=== PATIENT | female | born 1980 | race American Indian/Alaskan Native ===

== ENCOUNTER 2016-09-08 23:53 | Emergency (ER) | payer MEDICAID ==
[2016-09-09 04:24] VITALS: BP 109/77
--- NOTE | 2016-09-09 05:54 | Emergency Department Report ---
ED Shortness of Breath HPI - General Chief Complaint: Dyspnea/Respdistress Stated Complaint: COUGH Time Seen by Provider: 09/09/16 05:48 Source: patient Mode of arrival: Ambulatory Limitations: No Limitations - History of Present Illness Initial Comments: 36-year-old female reports that she is 3 weeks comes in for complaint of cough for 1 week. She reports that yesterday she started having shortness of breathing. She reports she is breathing comfortably now.LMP . Denies any fever or chills or nausea no vomiting or lower leg edema.. MD Complaint: shortness of breath, cough - Related Data Previous Rx's Medication Instructions Recorded Last Taken Type Acetaminophen/Codeine [Tylenol #3] 1 tab PO Q4HR PRN #20 tablet 09/09/16 Unknown Rx Allergies Allergy/AdvReac Type Severity Reaction Status Date / Time No Known Allergies Allergy Verified 09/09/16 00:34 ED Review of Systems ROS: Stated complaint: COUGH Other details as noted in HPI Constitutional: denies: chills, fever ENT: throat pain. denies: ear pain Respiratory: cough, shortness of breath Gastrointestinal: diarrhea. denies: abdominal pain, nausea, vomiting ED Past Medical Hx - Past Medical History Previous Medical History?: No - Surgical History Past Surgical History?: No - Social History Smoking Status: Never Smoker Substance Use Type: None - Medications Home Medications: Home Medications Medication Instructions Recorded Confirmed Last Taken Type Acetaminophen/Codeine [Tylenol #3] 1 tab PO Q4HR PRN #20 tablet 09/09/16 Unknown Rx ED Physical Exam - General Limitations: No Limitations General appearance: alert, in no apparent distress - Head Head exam: Present: atraumatic, normocephalic - ENT ENT exam: Present: mucous membranes moist - Neck Neck exam: Present: normal inspection, full ROM. Absent: tenderness, lymphadenopathy - Respiratory Respiratory exam: Present: normal lung sounds bilaterally. Absent: respiratory distress, wheezes, rales, rhonchi - Cardiovascular Cardiovascular Exam: Present: regular rate, normal rhythm, normal heart sounds - GI/Abdominal GI/Abdominal exam: Present: soft. Absent: distended, tenderness ED Course Vital Signs 09/09/16 09/09/16 00:34 04:23 Temperature 98.4 F 98.3 F Pulse Rate 88 90 Respiratory 16 Rate Blood Pressure 123/77 Blood Pressure 109/77 [Left] O2 Sat by Pulse 98 96 Oximetry ED Medical Decision Making - Medical Decision Making Been evaluated by this provider in fast track. We will discharge patient on Tylenol No. 3 for cough suppressant as well as pain. Discussed with patient that since she is and only about 3 weeks that she still can only take Tylenol for pain and discomfort. Patient verbalized understanding. Did discuss this with Dr. Reyna. Critical care attestation.: If time is entered above; I have spent that time in minutes in the direct care of this critically ill patient, excluding procedure time. ED Disposition Clinical Impression: Cough Disposition: DISCHARGED TO HOME OR SELFCARE Is pt being admited?: No Does the pt Need Aspirin: No Condition: Stable Instructions: Cold Symptoms (ED) Additional Instructions: Follow-up with her primary care provider 3-5 days. For further evaluation. If he develops a fever worsening shortness of breath worsening cough please follow- up with emergency room as soon as possible. Prescriptions: Acetaminophen/Codeine [Tylenol #3] 1 tab PO Q4HR PRN #20 tablet PRN Reason: Pain Forms: Work/School Release Form(ED)
== END 2016-09-09 06:10 | disposition home or self-care (01) ==
LOC: ED 23:53
DX: O26.891 Other specified pregnancy related conditions, first trimester (principal); R05 Cough; Z3A.01 Less than 8 weeks gestation of pregnancy
CPT/HCPCS: 81025; 99283

== ENCOUNTER 2016-09-27 20:28 | Emergency (ER) | payer MEDICAID ==
[2016-09-28] MEDS ORDERED: TYLENOL #3 PO ONE (01:46)
--- NOTE | 2016-09-28 03:27 | Emergency Department Report ---
- General Chief Complaint: Upper Respiratory Infection Stated Complaint: VOMITING BLOOD/R FLANK PAIN Source: patient Mode of arrival: Ambulatory Limitations: No Limitations - History of Present Illness Initial Comments: 36-year-old female that 8 weeks comes in for complaint of vomiting and coughing 3 weeks she denies any fever she does admit to sinus drainage complains of right upper lateral pain worse with cough. She has started OB but they did not place her on any antiemetics - Related Data Previous Rx's Medication Instructions Recorded Last Taken Type Acetaminophen/Codeine [Tylenol #3] 1 tab PO Q4HR PRN #20 tablet 09/09/16 Unknown Rx Acetaminophen/Codeine [Tylenol #3] 1 tab PO Q6H PRN #20 tab 09/28/16 Unknown Rx Ondansetron [Zofran Odt] 4 mg PO Q8H PRN #30 tab.rapdis 09/28/16 Unknown Rx Allergies Allergy/AdvReac Type Severity Reaction Status Date / Time No Known Allergies Allergy Verified 09/09/16 00:34 ED Review of Systems ROS: Stated complaint: VOMITING BLOOD/R FLANK PAIN Other details as noted in HPI Constitutional: denies: chills, fever ENT: congestion. denies: ear pain, throat pain Respiratory: cough Gastrointestinal: nausea ED Past Medical Hx - Past Medical History Previous Medical History?: No - Surgical History Past Surgical History?: No - Social History Smoking Status: Never Smoker Substance Use Type: None - Medications Home Medications: Home Medications Medication Instructions Recorded Confirmed Last Taken Type Acetaminophen/Codeine [Tylenol #3] 1 tab PO Q4HR PRN #20 tablet 09/09/16 Unknown Rx Acetaminophen/Codeine [Tylenol #3] 1 tab PO Q6H PRN #20 tab 09/28/16 Unknown Rx Ondansetron [Zofran Odt] 4 mg PO Q8H PRN #30 tab.rapdis 09/28/16 Unknown Rx ED Physical Exam - General Limitations: No Limitations General appearance: alert, in no apparent distress - Head Head exam: Present: atraumatic, normocephalic - Eye Eye exam: Present: normal appearance, PERRL, EOMI - ENT ENT exam: Present: normal exam, mucous membranes moist - Neck Neck exam: Present: normal inspection, full ROM. Absent: tenderness, lymphadenopathy - Respiratory Respiratory exam: Present: normal lung sounds bilaterally - Cardiovascular Cardiovascular Exam: Present: regular rate, normal rhythm, normal heart sounds - GI/Abdominal GI/Abdominal exam: Present: soft. Absent: distended, tenderness ED Course Vital Signs 09/27/16 21:01 Temperature 98.7 F Pulse Rate 80 Respiratory 22 Rate Blood Pressure 121/76 O2 Sat by Pulse 98 Oximetry ED Medical Decision Making - Medical Decision Making Patient's been evaluated by this provider in fast track. Patient was given Tylenol with Codeine 1 pill. Patient reports it has helped much with her cough and her side pain. Discussed with patient we would discharge her on Zofran and Tylenol No. 3. Discussed with patient it is very important for her to follow up with her OB provider. Per the nasal congestion she can use in netti pot. Critical care attestation.: If time is entered above; I have spent that time in minutes in the direct care of this critically ill patient, excluding procedure time. ED Disposition Clinical Impression: Cough, Nausea and vomiting during Disposition: DISCHARGED TO HOME OR SELFCARE Is pt being admited?: No Does the pt Need Aspirin: No Condition: Stable Instructions: Morning Sickness (ED), Cold Symptoms (ED) Additional Instructions: You need to follow-up with her OB provider 3-5 days. He continues and netti pot for nasal congestion. Tylenol No. 3 for cough and right side pain. Prescriptions: Acetaminophen/Codeine [Tylenol #3] 1 tab PO Q6H PRN #20 tab PRN Reason: Pain Ondansetron [Zofran Odt] 4 mg PO Q8H PRN #30 tab.rapdis PRN Reason: Nausea Referrals: PRIMARY CARE, [Primary Care Provider] - 3-5 Days [facility] [Provider Group] - 3-5 Days Forms: Work/School Release Form(ED), Accompanied Note
[2016-09-28 03:50] VITALS: BP 105/67
== END 2016-09-28 03:31 | disposition home or self-care (01) ==
LOC: ED 20:28
DX: O21.0 Mild hyperemesis gravidarum (principal); R05 Cough
CPT/HCPCS: 99282

== ENCOUNTER 2017-01-14 18:44 | Outpatient (CLI) | payer MEDICAID ==
[2017-01-14 19:18] VITALS: BP 100/61
[2017-01-14 20:03] LABS: Bilirubin,Urine NEG (Negative); Blood,Urine SM (Negative); Ketones,Urine TR mg/dL (Negative); Leukocyte Esterase,Urine NEG (Negative); Mucus,Urine FEW /HPF; Nitrite,Urine NEG (Negative); Protein,Urine <15 mg/dL mg/dL (Negative)
--- NOTE | 2017-01-15 09:19 | Ultrasound Report ---
OB ULTRASOUND History: Vaginal bleeding Technique: Transabdominal ultrasound with Doppler interrogation. Gestation: Single Position: Cephalic Amniotic Fluid: Normal KIERSTEN = 14.6 cm Placenta: Anterior, low-lying Placental Grade: 1 Heart Rate: 149 BPM Cervical length: 4.0 cm (Normal > 3 cm) NEUROANATOMY VISUALIZED: Choroid Plexus Cisterna Magnum Cerebellum Lateral Ventricle ANATOMY VISUALIZED: Stomach Kidneys Bladder Diaphragm 4 Chamber Heart Heart 3 Vessel Cord Abd. Cord Insert SPINE VISUALIZED: Longitudinal BPD: 6.3 cm = 25 w 6 d HC: 24.0 cm = 26 w 1 d AC: 22.3 cm = 26 w 6 d FL: 4.3 cm = 24 w 1 d HC/AC Ratio: 1.0 Cephalic Index: 83.3 Estimated Weight: 849 grams LMP: Not given Clinical age = w d EDC: US Gest. Age = 25 w 5 d EDC: 04/24/17
== END 2017-01-14 21:43 | disposition home or self-care (01) ==
LOC: TRG 18:44
PROVIDERS: ATTEND Obstetrics & Gynecology
DX: O09.522 Supervision of elderly multigravida, second trimester (principal); O46.92 Antepartum hemorrhage, unspecified, second trimester; Z3A.24 24 weeks gestation of pregnancy
CPT/HCPCS: 76805; 81001

== ENCOUNTER 2017-02-19 15:50 | Outpatient (CLI) | payer MEDICAID ==
[2017-02-19 17:40] VITALS: BP 111/53
[2017-02-19] MEDS ORDERED: LACTATED RINGERS 500 ML IV ONE (17:55)
== END 2017-02-19 18:10 | disposition home or self-care (01) ==
LOC: TRG 15:50
PROVIDERS: ATTEND Obstetrics & Gynecology
DX: O09.523 Supervision of elderly multigravida, third trimester (principal); Z3A.29 29 weeks gestation of pregnancy
CPT/HCPCS: 59025

== ENCOUNTER 2017-02-20 00:35 | Outpatient (CLI) | payer MEDICAID ==
[2017-02-20] MEDS ORDERED: LACTATED RINGERS 1,000 ML IV ONE ×2 (01:05→02:50)
[2017-02-20 01:58] LABS: Bacteria,Urine 3+ /HPF (Negative); Bilirubin,Urine NEG (Negative); Blood,Urine NEG (Negative); Ketones,Urine NEG (Negative); Leukocyte Esterase,Urine NEG (Negative); Mucus,Urine FEW /HPF; Nitrite,Urine NEG (Negative); Protein,Urine <15 mg/dL mg/dL (Negative); Urobilinogen,Urine < 2.0 mg/dL (<2.0)
[2017-02-20] MEDS: BRETHINE SUB-Q SCH ×2 (02:29→02:56)
[2017-02-20 03:16] VITALS: BP 129/62
== END 2017-02-20 03:45 | disposition home or self-care (01) ==
LOC: TRG 00:35
PROVIDERS: ATTEND Obstetrics & Gynecology
DX: O09.523 Supervision of elderly multigravida, third trimester (principal); O47.03 False labor before 37 completed weeks of gestation, third trimester; Z3A.30 30 weeks gestation of pregnancy
CPT/HCPCS: 59025; 81001; 96360; 96361; 96372; J3105; J7120

== ENCOUNTER 2017-04-28 11:09 | Emergency (ER) | payer MEDICAID ==
[2017-04-28 12:09] VITALS: BP 151/80
[2017-04-28] MEDS ORDERED: TYLENOL PO ONE (13:35)
--- NOTE | 2017-04-28 14:00 | Emergency Department Report ---
ED ENT HPI - General Chief complaint: Dental/Oral Stated complaint: TOOTHACHE Time Seen by Provider: 04/28/17 13:43 Source: patient Mode of arrival: Ambulatory Limitations: No Limitations - History of Present Illness Initial comments: Patient with dental pain on the right. Complains of pain since . History of crown at tooth #32. complaint: tooth pain Severity: severe Quality: aching Consistency: constant Improves with: none Worsens with: none Context- Dental: history of dental caries - Related Data Home Medications Medication Instructions Recorded Confirmed Last Taken Tablet 1 tab PO DAILY 02/19/17 02/19/17 1 Day Ago Previous Rx's Medication Instructions Recorded Last Taken Type HYDROcodone/APAP 5-325 [[place] 1 each PO Q6HR PRN #10 tablet 04/28/17 Unknown Rx 5-325 mg TAB] Ibuprofen [Motrin] 600 mg PO Q8H PRN #30 tablet 04/28/17 Unknown Rx Allergies Allergy/AdvReac Type Severity Reaction Status Date / Time No Known Allergies Allergy Verified 09/09/16 00:34 ED Dental HPI - General Chief complaint: Dental/Oral Stated complaint: TOOTHACHE Time Seen by Provider: 04/28/17 13:43 Source: patient Mode of arrival: Ambulatory Limitations: No Limitations - Related Data Home Medications Medication Instructions Recorded Confirmed Last Taken Tablet 1 tab PO DAILY 02/19/17 02/19/17 1 Day Ago Previous Rx's Medication Instructions Recorded Last Taken Type HYDROcodone/APAP 5-325 [[place] 1 each PO Q6HR PRN #10 tablet 04/28/17 Unknown Rx 5-325 mg TAB] Ibuprofen [Motrin] 600 mg PO Q8H PRN #30 tablet 04/28/17 Unknown Rx Allergies Allergy/AdvReac Type Severity Reaction Status Date / Time No Known Allergies Allergy Verified 09/09/16 00:34 ED Review of Systems ROS: Stated complaint: TOOTHACHE Other details as noted in HPI Comment: All other systems reviewed and negative Constitutional: denies: chills, fever ENT: dental pain Respiratory: denies: shortness of breath ED Past Medical Hx - Past Medical History Previous Medical History?: No Hx Hypertension: No Hx Diabetes: No Hx Deep Vein Thrombosis: No Hx Renal Disease: No Hx Sickle Cell Disease: No Hx Seizures: No Hx Asthma: No Hx HIV: No - Surgical History Past Surgical History?: No - Family History Family history: no significant - Social History Smoking Status: Never Smoker Substance Use Type: None - Medications Home Medications: Home Medications Medication Instructions Recorded Confirmed Last Taken Type Tablet 1 tab PO DAILY 02/19/17 02/19/17 1 Day Ago History HYDROcodone/APAP 5-325 [[place] 1 each PO Q6HR PRN #10 tablet 04/28/17 Unknown Rx 5-325 mg TAB] Ibuprofen [Motrin] 600 mg PO Q8H PRN #30 tablet 04/28/17 Unknown Rx ED Physical Exam - General Limitations: No Limitations General appearance: alert, in no apparent distress - Head Head exam: Present: atraumatic, normocephalic - Eye Eye exam: Present: normal appearance. Absent: scleral icterus, conjunctival injection - ENT ENT exam: Present: normal exam - Expanded ENT Exam Expanded Teeth exam: Present: dental caries, dental tenderness # (32) Throat exam: Negative: normal inspection, tonsillar erythema - Neck Neck exam: Present: normal inspection ED Course Vital Signs 04/28/17 04/28/17 12:04 13:37 Temperature 98.7 F Pulse Rate 47 L Respiratory 16 20 Rate Blood Pressure 151/80 O2 Sat by Pulse 100 Oximetry ED Medical Decision Making - Medical Decision Making Patient with significant dental caries and was no teeth. Likely tooth #32. Plan to treat with Motrin and will give her a short prescription for hydrocodone. I discussed the need to stop breast-feeding and pump and dump breast milk after taking hydrocodone. Critical care attestation.: If time is entered above; I have spent that time in minutes in the direct care of this critically ill patient, excluding procedure time. ED Disposition Clinical Impression: Pain, dental Disposition: DC-01 TO HOME OR SELFCARE Is pt being admited?: No Condition: Stable Instructions: Dental Caries (ED), Toothache (ED) Prescriptions: HYDROcodone/APAP 5-325 [[place] 5-325 mg TAB] 1 each PO Q6HR PRN #10 tablet PRN Reason: Pain Ibuprofen [Motrin] 600 mg PO Q8H PRN #30 tablet PRN Reason: Pain Referrals: PRIMARY CARE, [Primary Care Provider] - 3-5 Days
== END 2017-04-28 14:13 | disposition home or self-care (01) ==
LOC: ED 11:09
DX: K08.89 Other specified disorders of teeth and supporting structures (principal)
CPT/HCPCS: 99282

== ENCOUNTER 2017-04-30 07:29 | Emergency (ER) | payer MEDICAID ==
[2017-04-30 07:47] VITALS: BP 136/76
[2017-04-30] MEDS ORDERED: AUGMENTIN 875 MG PO ONE (09:59)
--- NOTE | 2017-05-01 15:10 | Emergency Department Report ---
Entered by GALO POMPA, acting as scribe for JAYMIE KHAN PA. ED ENT HPI - General Chief complaint: Dental/Oral Stated complaint: i have a tooth abscess Time Seen by Provider: 04/30/17 09:10 Source: patient Mode of arrival: Ambulatory Limitations: No Limitations - History of Present Illness Initial comments: 36 y/o female presents with toothache that started 3 days ago, worsened by eating. Pt describes pain as constant, achy and moderate in severity. Sx include abscess that formed this morning and mandibular swelling. She notes that she was seen here 3 days ago and prescribed Hydrocodine with no relief. Pt also states she has a dentist appt scheduled for tomorrow. MD complaint: tooth pain -: days(s) (3) Location: tooth # (29) Severity: moderate Severity scale (0 -10): 5 Quality: aching Consistency: constant Improves with: none Worsens with: eating Associated Symptoms: gum swelling, toothache. denies: fever, cough, pain with swallowing, sore throat, tinnitus, hearing loss, discharge from ear, rhinorrhea - Related Data Home Medications Medication Instructions Recorded Confirmed Last Taken Tablet 1 tab PO DAILY 02/19/17 02/19/17 1 Day Ago Previous Rx's Medication Instructions Recorded Last Taken Type HYDROcodone/APAP 5-325 [[place] 1 each PO Q6HR PRN #10 tablet 04/28/17 Unknown Rx 5-325 mg TAB] Amoxicillin/K Clav Tab [Augmentin 1 tab PO Q12HR #20 tab 04/30/17 Unknown Rx 875 mg] Ibuprofen [Motrin 600 MG tab] 600 mg PO Q8H PRN #30 tablet 04/30/17 Unknown Rx Allergies Allergy/AdvReac Type Severity Reaction Status Date / Time No Known Allergies Allergy Verified 09/09/16 00:34 ED Dental HPI - General Chief complaint: Dental/Oral Stated complaint: i have a tooth abscess Time Seen by Provider: 04/30/17 09:10 Source: patient Mode of arrival: Ambulatory Limitations: No Limitations - Related Data Home Medications Medication Instructions Recorded Confirmed Last Taken Tablet 1 tab PO DAILY 02/19/17 02/19/17 1 Day Ago Previous Rx's Medication Instructions Recorded Last Taken Type HYDROcodone/APAP 5-325 [[place] 1 each PO Q6HR PRN #10 tablet 04/28/17 Unknown Rx 5-325 mg TAB] Amoxicillin/K Clav Tab [Augmentin 1 tab PO Q12HR #20 tab 04/30/17 Unknown Rx 875 mg] Ibuprofen [Motrin 600 MG tab] 600 mg PO Q8H PRN #30 tablet 04/30/17 Unknown Rx Allergies Allergy/AdvReac Type Severity Reaction Status Date / Time No Known Allergies Allergy Verified 09/09/16 00:34 ED Review of Systems Comment: All other systems reviewed and negative Constitutional: denies: chills, fever ENT: dental pain (tooth number 29), other (mandibular swelling) Respiratory: denies: cough, shortness of breath Cardiovascular: denies: chest pain Gastrointestinal: denies: abdominal pain, nausea, vomiting Neurological: denies: headache, numbness ED Past Medical Hx - Past Medical History Previous Medical History?: Yes Hx Hypertension: No Hx Diabetes: No Hx Deep Vein Thrombosis: No Hx Renal Disease: No Hx Sickle Cell Disease: No Hx Seizures: No Hx Asthma: No Hx HIV: No Additional medical history: Toothache, Vaginal delivery x 3 - Surgical History Past Surgical History?: No - Social History Smoking Status: Never Smoker Substance Use Type: Alcohol, Prescribed - Medications Home Medications: Home Medications Medication Instructions Recorded Confirmed Last Taken Type Tablet 1 tab PO DAILY 02/19/17 02/19/17 1 Day Ago History HYDROcodone/APAP 5-325 [[place] 1 each PO Q6HR PRN #10 tablet 04/28/17 Unknown Rx 5-325 mg TAB] Amoxicillin/K Clav Tab [Augmentin 1 tab PO Q12HR #20 tab 04/30/17 Unknown Rx 875 mg] Ibuprofen [Motrin 600 MG tab] 600 mg PO Q8H PRN #30 tablet 04/30/17 Unknown Rx ED Physical Exam - General Limitations: No Limitations - Other Other exam information: GENERAL: Patient is alert and oriented x 3. No apparent distress, normal gait, atraumatic. HEAD: Head is normocephalic and atraumatic. EARS: Symmetrical, atraumatic, non tender, ear canal clear with moderate cerumen , tympanic membrane non inflamed. Gross auditory nml bilaterally. MOUTH:Mouth is well hydrated and without lesions. Mucous membranes are moist. Uvula midline. Tongue not elevated. Posterior pharynx clear, no exudate or lesions. Gingival enlargement on tooth number 29 with TTP noted and a gold crown on tooth 29. Dental carries present on tooth 30. No TMJ tenderness. NECK: Supple. Non edematous, no carotid bruits. No thyromegaly. Right sided cervical lymphadenopathy noted. LUNGS: Symmetrical with respiration, no wheezing, no rales, no crackles, CTAB HEART: Regular rate and rhythm with normal S1/S2 present. No murmurs, rubs, or gallops. SKIN: Warm and dry. No lesions, ulceration or induration present ED Course Vital Signs 04/30/17 07:43 Temperature 98.7 F Pulse Rate 59 L Respiratory 18 Rate Blood Pressure 136/76 O2 Sat by Pulse 99 Oximetry ED Medical Decision Making - Medical Decision Making 36-year-old female who presents with dental caries ED course: Patient received 1000 mg of amoxicillin, 2 tablets of Tylenol No. 3. Odontogenic infection versus ear infection. Based upon history and physical examination, pain is a result of an infection of tooth number 29 and that the pain Pt feels on the right side of her face and towards the ear is referred pain from this infectious process. Pt has no evidence of acute impending airway compromise. At this point, patient will be discharged home on some antibiotics and pain trial, she will do well with an outpatient course of antibiotics. Follow up with the Dental Clinic as referred Vital signs are normal patient is in no acute distress. Pt had an effect uneventful ED stay ED Disposition Clinical Impression: Dental abscess Disposition: DC- TO HOME OR SELFCARE Is pt being admited?: No Does the pt Need Aspirin: No Condition: Stable Instructions: Dental Abscess (ED), Toothache (ED) Prescriptions: Amoxicillin/K Clav Tab [Augmentin 875 mg] 1 tab PO Q12HR #20 tab Ibuprofen [Motrin 600 MG tab] 600 mg PO Q8H PRN #30 tablet PRN Reason: Pain Referrals: MARGE EUGENE JR, MD [Primary Care Provider] - 3-5 Days Forms: Work/School Release Form(ED) Time of Disposition: 10:17 This documentation as recorded by the ALETHA easley RYAN,accurately reflects the service I personally performed and the decisions made by BILL marina OYINLOLA A PA.
== END 2017-04-30 10:25 | disposition home or self-care (01) ==
LOC: ED 07:29
DX: K02.9 Dental caries, unspecified (principal)
CPT/HCPCS: 99282

== ENCOUNTER 2018-02-01 21:20 | Emergency (ER) | payer SELFPAY ==
--- NOTE | 2018-02-02 04:06 | Emergency Department Report ---
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 Discharge white thick malodorous fishy Complaint: vaginal discharge Severity: moderate Severity scale (0 -10): 3 Are you Now?: No Last Menstrual Period: 01/23/18 EDC: 10/30/18 Associated Symptoms: vaginal discharge. denies: dysuria - Related Data Sexually active: No Home Medications Medication Instructions Recorded Confirmed Last Taken Tablet 1 tab PO DAILY 02/19/17 02/19/17 1 Day Ago ~02/18/17 Previous Rx's Medication Instructions Recorded Last Taken Type HYDROcodone/APAP 5-325 [[place] 1 each PO Q6HR PRN #10 tablet 04/28/17 Unknown Rx 5-325 mg TAB] Amoxicillin/K Clav Tab [Augmentin 1 tab PO Q12HR #20 tab 04/30/17 Unknown Rx 875 mg] Ibuprofen [Motrin 600 MG tab] 600 mg PO Q8H PRN #30 tablet 04/30/17 Unknown Rx Fluconazole [Diflucan TAB] 150 mg PO ONCE #1 tablet 02/02/18 Unknown Rx metroNIDAZOLE [Flagyl] 500 mg PO BID #20 tab 02/02/18 Unknown Rx Allergies Allergy/AdvReac Type Severity Reaction Status Date / Time No Known Allergies Allergy Verified 09/09/16 00:34 ED Review of Systems ROS: Stated complaint: VAG D/C WITH IRRITATION Other details as noted in HPI Constitutional: denies: chills, fever Eyes: denies: eye pain, eye discharge, vision change ENT: denies: ear pain, throat pain Respiratory: denies: cough, shortness of breath, wheezing Cardiovascular: denies: chest pain, palpitations Endocrine: no symptoms reported Gastrointestinal: denies: abdominal pain, nausea, diarrhea Genitourinary: discharge. denies: urgency, dysuria, frequency, hematuria Musculoskeletal: denies: back pain, joint swelling, arthralgia Skin: denies: rash, lesions Neurological: denies: headache, weakness, paresthesias Psychiatric: denies: anxiety, depression Hematological/Lymphatic: denies: easy bleeding, easy bruising ED Past Medical Hx - Past Medical History Previous Medical History?: Yes Hx Hypertension: No Hx Diabetes: No Hx Deep Vein Thrombosis: No Hx Renal Disease: No Hx Sickle Cell Disease: No Hx Seizures: No Hx Asthma: No Hx HIV: No Additional medical history: Toothache, Vaginal delivery x 3. chronic yeast infections - Surgical History Past Surgical History?: Yes Additional Surgical History: tubal ligation - Social History Smoking Status: Never Smoker Substance Use Type: None - Medications Home Medications: Home Medications Medication Instructions Recorded Confirmed Last Taken Type Tablet 1 tab PO DAILY 02/19/17 02/19/17 1 Day Ago History ~02/18/17 HYDROcodone/APAP 5-325 [[place] 1 each PO Q6HR PRN #10 tablet 04/28/17 Unknown Rx 5-325 mg TAB] Amoxicillin/K Clav Tab [Augmentin 1 tab PO Q12HR #20 tab 04/30/17 Unknown Rx 875 mg] Ibuprofen [Motrin 600 MG tab] 600 mg PO Q8H PRN #30 tablet 04/30/17 Unknown Rx Fluconazole [Diflucan TAB] 150 mg PO ONCE #1 tablet 02/02/18 Unknown Rx metroNIDAZOLE [Flagyl] 500 mg PO BID #20 tab 02/02/18 Unknown Rx ED Physical Exam - General Limitations: No Limitations General appearance: alert, in no apparent distress - Head Head exam: Present: atraumatic, normocephalic - Eye Eye exam: Present: normal appearance - ENT ENT exam: Present: mucous membranes moist - Neck Neck exam: Present: normal inspection - Respiratory Respiratory exam: Present: normal lung sounds bilaterally. Absent: respiratory distress - Cardiovascular Cardiovascular Exam: Present: regular rate, normal rhythm. Absent: systolic murmur, diastolic murmur, rubs, gallop - GI/Abdominal GI/Abdominal exam: Present: soft, normal bowel sounds. Absent: distended, tenderness, guarding, rebound, rigid, diminished bowel sounds, organomegaly, mass, bruit, pulsatile mass, hernia - Rectal Rectal exam: Present: deferred - Extremities Exam Extremities exam: Present: normal inspection, full ROM, normal capillary refill. Absent: tenderness, pedal edema, joint swelling, calf tenderness - Back Exam Back exam: Present: normal inspection, full ROM. Absent: tenderness, CVA tenderness (R), CVA tenderness (L), muscle spasm, paraspinal tenderness, vertebral tenderness, rash noted - Neurological Exam Neurological exam: Present: alert, oriented X3, CN II-XII intact, normal gait. Absent: motor sensory deficit, reflexes normal - Psychiatric Psychiatric exam: Present: normal affect, normal mood - Skin Skin exam: Present: warm, dry, intact, normal color. Absent: rash ED Course Vital Signs 02/01/18 02/01/18 22:02 22:16 Temperature 98.6 F Pulse Rate 78 Blood Pressure 109/65 O2 Sat by Pulse 99 Oximetry ED Medical Decision Making - Medical Decision Making Patient defers vaginal exam question treatment of BV plan Flagyl 500 by mouth twice a day for 10 days Diflucan by mouth 1 follow up with [facility]ALITY ASSURANCE SPECIALIST in 2-3 days patient verbalizes understanding and agreement with discharge plan will be DC'd to home in stable condition at this time. Critical care attestation.: If time is entered above; I have spent that time in minutes in the direct care of this critically ill patient, excluding procedure time. ED Disposition Clinical Impression: BV (bacterial vaginosis), Liz vaginitis Disposition: DC-01 TO HOME OR SELFCARE Is pt being admited?: No Does the pt Need Aspirin: No Condition: Good Instructions: Bacterial Vaginosis (ED), Vaginitis (ED) Prescriptions: Fluconazole [Diflucan TAB] 150 mg PO ONCE #1 tablet metroNIDAZOLE [Flagyl] 500 mg PO BID #20 tab Referrals: JUANI JUNG MD [Staff Physician] - 3-5 Days Forms: Work/School Release Form(ED) Time of Disposition: 04:17
[2018-02-02] MEDS ORDERED: DIFLUCAN PO ONE (04:19)
[2018-02-02 06:29] VITALS: BP 110/62
== END 2018-02-02 05:01 | disposition home or self-care (01) ==
LOC: ED 21:20
DX: N76.0 Acute vaginitis (principal); B37.3 Candidiasis of vulva and vagina; Z98.51 Tubal ligation status
CPT/HCPCS: 99282

== ENCOUNTER 2019-02-04 05:39 | Emergency (ER) | payer SELFPAY ==
[2019-02-04 05:51] VITALS: BP 119/74
[2019-02-04 06:04] LABS: Eosinophils % (Auto) 0.8 % (0.0-4.3); Hematocrit 36.8 % (30.3-42.9); Hemoglobin 12.7 gm/dl (10.1-14.3); Lymphocytes # (Auto) 1.8 K/mm3 (1.2-5.4); Lymphocytes % (Auto) 39.7 % (13.4-35.0); Mean Corpuscular HGB Conc 34 % (30-34); Mean Corpuscular Volume 94 fl (79-97); Monocytes # (Auto) 0.4 K/mm3 (0.0-0.8); Monocytes % (Auto) 9.1 % (0.0-7.3); Platelet Count 278 K/mm3 (140-440); Red Cell Distribution Width 12.7 % (13.2-15.2)
[2019-02-04 06:23] LABS: Alanine Aminotransferase 9 units/L (7-56); Albumin 4.3 g/dL (3.9-5); BUN/Creatinine Ratio 20; Blood Urea Nitrogen 12 mg/dL (7-17); Calcium 9.1 mg/dL (8.4-10.2); Hemolysis Index 5
[2019-02-04 06:39] LABS: Bilirubin,Urine NEG (Negative); Blood,Urine NEG (Negative); Color,Urine Yellow (Yellow); Mucus,Urine FEW /HPF; Protein,Urine <15 mg/dL mg/dL (Negative); Urobilinogen,Urine < 2.0 mg/dL (<2.0); WBC,Urine < 1.0 /HPF (0.0-6.0)
--- NOTE | 2019-02-14 15:14 | Emergency Department Report ---
Blank Doc - Documentation Documentation: Patient's left without being seen and was not seen by a provider
== END 2019-02-04 09:06 | disposition left against medical advice (07) ==
LOC: ED 05:39
DX: R10.9 Unspecified abdominal pain (principal); R11.0 Nausea; Z53.21 Procedure and treatment not carried out due to patient leaving prior to being seen by health care provider
CPT/HCPCS: 36415; 80053; 81001; 84703; 85025

== ENCOUNTER 2019-05-04 20:30 | Emergency (ER) | payer MEDICAID ==
--- NOTE | 2019-05-04 21:10 | Event Note ---
ED Screening Note Date of service: 05/04/19 Time: 21:06 ED Screening Note: This is a 38 y.o. F. that presents to the ER with right sided neck and right shoulder pain. Denies injury Reports numbness and tingling in right fingers. This initial assessment/diagnostic orders/clinical plan/treatment(s) is/are subject to change based on patients health status, clinical progression and re- assessment by fellow clinical providers in the ED. Further treatment and workup at subsequent clinical providers discretion. Patient/guardian urged not to elope from the ED as their condition may be serious if not clinically assessed and managed. Initial orders include: XR C-spine and right shoulder
--- NOTE | 2019-05-04 21:56 | XRay Report ---
RIGHT SHOULDER 3 VIEWS INDICATION: MAIN: ac joint pain PT SD UNBEARABLE PAIN AND STIFFNESS THAT LEADS TO SPASMS IN HER NECK DOWN TOWA RDS SHOULDERS..JTS. COMPARISON: No relevant prior imaging study available. FINDINGS: No acute fracture or dislocation is seen. No soft tissue swelling or foreign bodies. There are no significant degenerative changes. No radiographic evidence of joint effusion. IMPRESSION: 1. No acute findings. Signer Name: Vinny Casas MD Signed: 05/04/2019 9:52 PM Workstation Name: [id number]
--- NOTE | 2019-05-04 21:58 | XRay Report ---
CERVICAL SPINE 3 VIEWS INDICATION: MAIN: spasm pain, right PT SD UNBEARABLE PAIN AND STIFFNESS THAT LEADS TO SPASMS IN HER NECK DOWN TOWARDS SHOULDERS..JTS. COMPARISON: No relevant prior imaging study available. FINDINGS: There is no fracture or subluxation. Alignment is normal. Soft tissues are normal. There are no degen erative changes. IMPRESSION: 1. No acute findings. Signer Name: Vinny Casas MD Signed: 05/04/2019 9:54 PM Workstation Name: [id number]
[2019-05-04] MEDS ORDERED: IBUPROFEN ONE (23:16)
[2019-05-04] MEDS ORDERED: FLEXERIL ONE (23:16)
[2019-05-04] MEDS ORDERED: IBUPROFEN PO ONE (23:19)
[2019-05-04] MEDS ORDERED: FLEXERIL PO ONE (23:20)
--- NOTE | 2019-05-05 02:01 | Emergency Department Report ---
ED Neck Pain/Injury HPI - General Chief Complaint: Neck Pain/Injury Stated Complaint: RIGHT NECK AND SHOULDER PAIN Time Seen by Provider: 05/04/19 21:06 Source: patient, family Mode of arrival: Ambulatory Limitations: No Limitations - History of Present Illness Complaint: neck pain, other (radiating pain from right neck to right upper extremity with numbness and tingling to fingers) Onset/Timin -: days(s) Place: home Radiation: right upper extremity Severity: severe, constant Severity scale (0 -10): 10 Quality: burning, sharp, aching Consistency: constant Improves With: none Worsens With: movement of neck Context: unknown Associated Symptoms: numbness, tingling. denies: headache, fever, weakness, vertigo, difficulty walking, swollen glands, difficulty swallowing, nausea, vomiting Treatments Prior to Arrival: none - Related Data Home Medications Medication Instructions Recorded Confirmed Last Taken Tablet 1 tab PO DAILY 02/19/17 02/19/17 1 Day Ago ~02/18/17 Previous Rx's Medication Instructions Recorded Last Taken Type HYDROcodone/APAP 5-325 [[place] 1 each PO Q6HR PRN #10 tablet 04/28/17 Unknown Rx 5-325 mg TAB] Amoxicillin/K Clav Tab [Augmentin 1 tab PO Q12HR #20 tab 04/30/17 Unknown Rx 875 mg] Ibuprofen [Motrin 600 MG tab] 600 mg PO Q8H PRN #30 tablet 04/30/17 Unknown Rx Fluconazole [Diflucan TAB] 150 mg PO ONCE #1 tablet 02/02/18 Unknown Rx metroNIDAZOLE [Flagyl] 500 mg PO BID #20 tab 02/02/18 Unknown Rx Cyclobenzaprine [Flexeril 10mg] 10 mg PO Q12H PRN #14 tablet 05/05/19 Unknown Rx Ibuprofen [Motrin] 800 mg PO Q8HR PRN #12 tablet 05/05/19 Unknown Rx Prednisone [predniSONE 10 mg 10 mg PO .TAPER #1 tab.ds.pk 05/05/19 Unknown Rx (6-Day Pack, 21 Tabs)] Allergies Allergy/AdvReac Type Severity Reaction Status Date / Time No Known Allergies Allergy Verified 09/09/16 00:34 ED Review of Systems ROS: Stated complaint: RIGHT NECK AND SHOULDER PAIN Other details as noted in HPI Constitutional: denies: chills, fever Respiratory: denies: cough, shortness of breath, wheezing Cardiovascular: denies: chest pain, palpitations, dyspnea on exertion, edema, syncope Gastrointestinal: denies: abdominal pain, nausea, vomiting, hematemesis Musculoskeletal: arthralgia, myalgia. denies: back pain, joint swelling Skin: denies: rash Neurological: numbness, paresthesias. denies: headache, weakness, confusion, abnormal gait, vertigo ED Past Medical Hx - Past Medical History Previous Medical History?: Yes Hx Hypertension: No Hx Diabetes: No Hx Deep Vein Thrombosis: No Hx Renal Disease: No Hx Sickle Cell Disease: No Hx Seizures: No Hx Asthma: No Hx HIV: No Additional medical history: Toothache, Vaginal delivery x 3. chronic yeast infections - Surgical History Past Surgical History?: Yes Additional Surgical History: tubal ligation - Family History Family history: hypertension - Social History Smoking Status: Never Smoker Substance Use Type: None - Medications Home Medications: Home Medications Medication Instructions Recorded Confirmed Last Taken Type Tablet 1 tab PO DAILY 02/19/17 02/19/17 1 Day Ago History ~02/18/17 HYDROcodone/APAP 5-325 [[place] 1 each PO Q6HR PRN #10 tablet 04/28/17 Unknown Rx 5-325 mg TAB] Amoxicillin/K Clav Tab [Augmentin 1 tab PO Q12HR #20 tab 04/30/17 Unknown Rx 875 mg] Ibuprofen [Motrin 600 MG tab] 600 mg PO Q8H PRN #30 tablet 04/30/17 Unknown Rx Fluconazole [Diflucan TAB] 150 mg PO ONCE #1 tablet 02/02/18 Unknown Rx metroNIDAZOLE [Flagyl] 500 mg PO BID #20 tab 02/02/18 Unknown Rx Cyclobenzaprine [Flexeril 10mg] 10 mg PO Q12H PRN #14 tablet 05/05/19 Unknown Rx Ibuprofen [Motrin] 800 mg PO Q8HR PRN #12 tablet 05/05/19 Unknown Rx Prednisone [predniSONE 10 mg 10 mg PO .TAPER #1 tab.ds.pk 05/05/19 Unknown Rx (6-Day Pack, 21 Tabs)] ED Physical Exam - General Limitations: No Limitations General appearance: alert, in no apparent distress - Head Head exam: Present: atraumatic, normocephalic, normal inspection, other (normal exam) - Eye Eye exam: Present: normal appearance, PERRL, EOMI. Absent: nystagmus Pupils: Present: normal accommodation - ENT ENT exam: Present: normal exam, normal orophraynx, mucous membranes moist, TM's normal bilaterally, normal external ear exam - Neck Neck exam: Present: normal inspection, tenderness (right lateral neck), full ROM (pain or range of motion to right neck), other (no C-spine tenderness). Absent: meningismus, lymphadenopathy, thyromegaly - Expanded Neck Exam Expanded Neck exam: Present: tenderness (right lateral neck). Absent: midline deformity, anterior neck swelling, thyroid mass, carotid bruit, tracheal deviation - Respiratory Respiratory exam: Present: normal lung sounds bilaterally. Absent: respiratory distress, chest wall tenderness - Cardiovascular Cardiovascular Exam: Present: regular rate, normal rhythm, normal heart sounds - Extremities Exam Extremities exam: Present: normal inspection, full ROM, normal capillary refill, other (No cce. + 2 pulses in all extremities, no neurovascular compromise). Absent: tenderness, pedal edema, joint swelling, calf tenderness - Expanded Upper Extremity Exam Right General: Present: normal inspection Shoulder Exam: Present: normal inspection, full ROM. Absent: tenderness, swelling, abrasion, laceration, ecchymosis, deformity, crepidus, dislocation, erythema, tenderness over AC joint Upper Arm exam: Present: normal inspection, full ROM. Absent: tenderness, s welling, abrasion, laceration, ecchymosis, deformity, crepidus, dislocation, erythema Elbow exam: Present: normal inspection, full ROM. Absent: tenderness, swelling, abrasion, laceration, ecchymosis, deformity, crepidus, dislocation, erythema, effusion, pain w/ pronation/supination, tenderness over radial head Forearm Wrist exam: Present: normal inspection, full ROM. Absent: tenderness, swelling, abrasion, laceration, ecchymosis, deformity, crepidus, dislocation, erythema, tenderness over anatomical snuff box, pain with axial thumb loading Hand Wrist exam: Present: normal inspection, full ROM. Absent: tenderness, swelling, abrasion, laceration, ecchymosis, deformity, crepidus, dislocation, erythema, amputation, nail avulsion, subungual hematoma Neuro motor exam: Present: wrist extension intact, thumb opposition intact, thumb IP flexion intact, thumb adduction intact, fingers 2-5 abduction intact Neurosensory exam: Present: 2-point discrimination, radial nerve intact, ulnar nerve intact, median nerve intact Vascular: Present: normal capillary refill. Absent: vascular compromise, pulse deficit radial art, pulse deficit ulnar art, pulse deficit brachial art - Back Exam Back exam: Present: normal inspection, full ROM, other (ambulates without any difficulties). Absent: tenderness, paraspinal tenderness, vertebral tenderness - Neurological Exam Neurological exam: Present: alert, oriented X3, normal gait, reflexes normal. Absent: motor sensory deficit - Expanded Neurological Exam Expanded Neurological exam: Absent: innattentive, memory loss-remote event, memory loss- recent event, ataxia, receptive aphasia Patient oriented to: Present: person, place, time Speech: Present: fluid speech Cerebellar function: Finger to Nose: Normal, Romberg: Normal Upper motor neuron: Pronator Drift: Normal, Sensory Extinction: Normal Sensory exam: Upper Extremity Light Touch: Normal, Upper Extremity Temperature: Normal, Lower Extremity Light Touch: Normal, Lower Extremity Temperature: Normal Motor strength exam: RUE: 5, LUE: 5, RLE: 5, LLE: 5 DTR: bicep (R): 2+, bicep (L): 2+, tricep (R): 2+, tricep (L): 2+ Best Eye Response ([place]): (4) open spontaneously Best Motor Response ([place]): (6) obeys commands Best Verbal Response ([place]): (5) oriented [place] Total: 15 - Psychiatric Psychiatric exam: Present: normal affect, normal mood - Skin Skin exam: Present: warm, dry, intact, normal color. Absent: rash ED Course Vital Signs 05/04/19 05/04/19 05/04/19 20:53 21:07 23:23 Temperature 97.1 F L 97.1 F L Pulse Rate 92 H 92 H Respiratory 16 20 20 Rate Blood Pressure 122/62 Blood Pressure 122/62 [Left] O2 Sat by Pulse 99 99 Oximetry 05/05/19 00:23 Temperature Pulse Rate Respiratory 20 Rate Blood Pressure Blood Pressure [Left] O2 Sat by Pulse Oximetry - Reevaluation(s) Reevaluation #1: 05/05/19 02:15 Patient was given Flexeril 10 mg by mouth and Motrin 800 mg by mouth for pain to neck this radiating down her right shoulder with numbness and tingling to her finger which is new onset. She said it helped a little but she still having a lot of pain. Awaiting CT scan C-spine. Reevaluation #2: 05/05/19 03:16 CT scan C-spine shows patient with bulging disks at C3 to 4. She still having pain and she was given [place] 5/325 2 tablets and Decadron 6 mg by mouth. She is with her family member at present. She stable and in no acute distress ED Medical Decision Making - Radiology Data Radiology results: report reviewed Findings [address] [address] Cat Scan Report Signed Patient: YOUSIF GARCIA MR# : [id number] : 1980 Acct:[id number] Age/Sex: 38 / F ADM Date: 05/04/19 Loc: ED Attending Dr: Ordering Physician: CLOVIS GUEVARA Date of Service: 05/05/19 Procedure(s): CT cervical spine wo con Accession Number(s): [id number] cc: CLOVIS GUEVARA CT cervical spine wo con INDICATION: left cervical radiculopathy, new onset. TECHNIQUE: All CT scans at this location are performed using the following dose modulation technique: Automated exposure control. Helical slices were obtained through the cervical spine. Coronal and sagittal reformatted images were obtained. COMPARISON: None available. FINDINGS: Cervical spine is in normal alignment. Disc space heights are maintained. No fracture or subluxation is seen. There is a possible mild disc bulge at C4-5. Prevertebral soft tissues are unremarkable. No fracture or subluxation is seen. IMPRESSION: 1. No fracture or subluxation is seen. There is possible mild disc bulge at C4- 5. Signer Name: Janes Sandhu MD Signed: 05/05/2019 2:38 AM Workstation Name: [email or web address] Transcribed By: SS Dictated By: Janes Sandhu MD Electronically Authenticated By: Janes Sandhu MD Signed Date/Time: 05/05/19 0238 DD/DT: Findings [address] [address] XRay Report Signed Patient: YOUSIF GARCIA MR# : [id number] : 1980 Acct:[id number] Age/Sex: 38 / F ADM Date: 05/04/19 Loc: ED Attending Dr: Ordering Physician: SANDRO MICHAELS Date of Service: 05/04/19 Procedure(s): XR shoulder 2+V RT Accession Number(s): [id number] cc: SANDRO MICHAELS Fluoro Time In Minutes: RIGHT SHOULDER 3 VIEWS INDICATION: MAIN: ac joint pain PT SD UNBEARABLE PAIN AND STIFFNESS THAT LEADS TO SPASMS IN HER NECK DOWN TOWARDS SHOULDERS..JTS. COMPARISON: No relevant prior imaging study available. FINDINGS: No acute fracture or dislocation is seen. No soft tissue swelling or foreign bodies. There are no significant degenerative changes. No radiographic evidence of joint effusion. IMPRESSION: 1. No acute findings. Signer Name: Vinny Casas MD Signed: 05/04/2019 9:52 PM Workstation Name: [email or web address] Transcribed By: Dictated By: Vinny Casas MD Electronically Authenticated By: Vinny Casas MD Signed Date/Time: 05/04/192151 DD/ 50 TD/TT: Findings [facility] [address] [place] [address] XRay Report Signed Patient: YOUSIF GARCIA MR# : [id number] : 1980 Acct:[id number] Age/Sex: 38 / F ADM Date: 05/04/19 Loc: ED Attending Dr: Ordering Physician: SANDRO MICHAELS Date of Service: 05/04/19 Procedure(s): XR spine cervical 2-3V Accession Number(s): [id number] cc: SANDRO MICHAELS Fluoro Time In Minutes: CERVICAL SPINE 3 VIEWS INDICATION: MAIN: spasm pain, right PT SD UNBEARABLE PAIN AND STIFFNESS THAT LEADS TO SPASMS IN HER NECK DOWN TOWARDS SHOULDERS..JTS. COMPARISON: No relevant prior imaging study available. FINDINGS: There is no fracture or subluxation. Alignment is normal. Soft tissues are normal. There are no degenerative changes. IMPRESSION: 1. No acute findings. Signer Name: Vinny Casas MD Signed: 05/04/2019 9:54 PM Workstation Name: [email or web address] Transcribed By: HEIDE Dictated By: Vinny Casas MD Electronically Authenticated By: Vinny Casas MD Signed Date/Time: 05/04/192153 DD/ - Medical Decision Making This is a 38-year-old female came to the emergency room with her family member reports that she has been having pain in her right neck for 3 days on and off but today it just got worse and constant. She reports pain radiating down her right arm with numbness and tingling to her fingers. Patient with normal neurological exam and no compromise in her circulation. Her neck exam shows pain or range of motion but no C-spine tenderness. Patient had x-ray of C- spine, x-ray of right shoulder and CT scan of C-spine without contrast which are dictated by radiologist and report reviewed by myself. Normal exam except C- spine CT scan shows disc bulge. I communicated this to patient and she voiced understanding and I told her for her to resurging where she needs to see neurosurgeon that specializes in spine for evaluation and she voiced understanding. I discussed with her that if her condition worsens and not getting better to return should emergency room and she voiced understanding. Patient was given Motrin and Flexeril that was ordered from triage and she said her pain is better but then pain returned and she was given [place] 5/325 2 tablets and Deltasone 60 mg by mouth which helped her pain. Patient discharged home in stable condition with her family member prescription for prednisone, Motrin and flexeril - Differential Diagnosis fracture versus subluxation , stenosis,versus DDD, strain Critical care attestation.: If time is entered above; I have spent that time in minutes in the direct care of this critically ill patient, excluding procedure time. ED Disposition Clinical Impression: Right cervical radiculopathy, Bulging of cervical intervertebral disc Disposition: DC-01 TO HOME OR SELFCARE Is pt being admited?: No Does the pt Need Aspirin: No Condition: Stable Instructions: Cervical Disc Herniation (ED), Cervical Radiculopathy (ED) Additional Instructions: Please follow up with [facility] orthopedic doctor regarding cervical disc bulge and radiation of pain to your right upper extremity. Take medication as prescribed and please do not drive or operate heavy machinery while taking Flexeril Increase your fluid intake and rest. Few condition worsens, return to the emergency room Referrals: [facility] [Provider Group] - 05/06/19 [facility] [Outside] - 05/06/19 Forms: Accompanied Note, Work/School Release Form(ED)
--- NOTE | 2019-05-05 02:43 | Cat Scan Report ---
CT cervical spine wo con INDICATION: left cervical radiculopathy, new onset. TECHNIQUE: All CT scans at this location are performed using the following dose modulation technique: Automated exposure control. Helical slices were obtained through the cervical spine. Coronal and sagittal refor matted images were obtained. COMPARISON: None available. FINDINGS: Cervical spine is in normal alignment. Disc space heights are maintained. No fracture or subluxation is seen. There is a possible mild disc bulge at C4-5. Prevertebral soft tissues are unremarkable. No fracture or subluxation is seen. IMPRESSION: 1. No fracture or subluxation is seen. There is possible mild disc bulge at C4-5. Signer Name: Janes Sandhu MD Signed: 05/05/2019 2:38 AM Workstation Name: [email or web address]ified
[2019-05-05] MEDS ORDERED: DELTASONE PO ONE (03:15)
[2019-05-05] MEDS ORDERED: NORCO 5/325 PO ONE (03:15)
[2019-05-05 04:53] VITALS: BP 100/65
== END 2019-05-05 03:45 | disposition home or self-care (01) ==
LOC: ED 20:30
DX: M50.10 Cervical disc disorder with radiculopathy, unspecified cervical region (principal); Z98.51 Tubal ligation status; Z98.890 Other specified postprocedural states; Z79.899 Other long term (current) drug therapy
CPT/HCPCS: 72040; 72125; 73030; 99284; J7512

== ENCOUNTER 2019-06-21 09:59 | Emergency (ER) | payer SELFPAY ==
[2019-06-21 10:37] VITALS: BP 116/64
[2019-06-21 12:50] LABS: Bilirubin,Urine NEG (Negative); Blood,Urine NEG (Negative); Color,Urine Colorless (Yellow); Mucus,Urine FEW /HPF; Protein,Urine <15 mg/dL mg/dL (Negative); Urobilinogen,Urine < 2.0 mg/dL (<2.0)
--- NOTE | 2019-06-21 13:31 | Emergency Department Report ---
ED General Adult HPI - General Chief complaint: Urogenital-Female Stated complaint: PAIN IN NECK/ABD PAIN Time Seen by Provider: 06/21/19 11:58 Source: patient Mode of arrival: Ambulatory Limitations: No Limitations - History of Present Illness Initial comments: 38-year-old female patient presents to ED with complaint of neck pain and vaginal discharge. Patient reports 1 month history of neck pain. States she was diagnosed with a herniated cervical disc. Patient states she is still awaiting appointment with chiropractor. Patient reports she lifted her daughter on yesterday and this exacerbated her right neck and shoulder pain. Patient denies any weakness, numbness or tingling in her upper extremities. Patient also reports 2 week history of vaginal discharge and lower abdominal pain. She denies any urinary frequency or dysuria. Location: neck, genitals Quality: sharp Consistency: intermittent Improves with: immobilization Worsens with: movement Associated Symptoms: denies: fever/chills, nausea/vomiting - Related Data Home Medications Medication Instructions Recorded Confirmed Last Taken Tablet 1 tab PO DAILY 02/19/17 02/19/17 1 Day Ago ~02/18/17 Previous Rx's Medication Instructions Recorded Last Taken Type HYDROcodone/APAP 5-325 [Catarina 1 each PO Q6HR PRN #10 tablet 04/28/17 Unknown Rx 5-325 mg TAB] Amoxicillin/K Clav Tab [Augmentin 1 tab PO Q12HR #20 tab 04/30/17 Unknown Rx 875 mg] Ibuprofen [Motrin 600 MG tab] 600 mg PO Q8H PRN #30 tablet 04/30/17 Unknown Rx Fluconazole [Diflucan TAB] 150 mg PO ONCE #1 tablet 02/02/18 Unknown Rx metroNIDAZOLE [Flagyl] 500 mg PO BID #20 tab 02/02/18 Unknown Rx Cyclobenzaprine [Flexeril 10mg] 10 mg PO Q12H PRN #14 tablet 05/05/19 Unknown Rx Ibuprofen [Motrin] 800 mg PO Q8HR PRN #12 tablet 05/05/19 Unknown Rx Prednisone [predniSONE 10 mg 10 mg PO .TAPER #1 tab.ds.pk 05/05/19 Unknown Rx (6-Day Pack, 21 Tabs)] Naproxen [Naprosyn] 500 mg PO BID #20 tablet 06/21/19 Unknown Rx methOCARBAMOL [Robaxin TAB] 500 mg PO Q8HR PRN #20 tablet 06/21/19 Unknown Rx Allergies Allergy/AdvReac Type Severity Reaction Status Date / Time No Known Allergies Allergy Verified 09/09/16 00:34 ED Review of Systems ROS: Stated complaint: PAIN IN NECK/ABD PAIN Other details as noted in HPI Comment: All other systems reviewed and negative Constitutional: denies: chills, fever Gastrointestinal: abdominal pain. denies: nausea, vomiting Genitourinary: discharge. denies: dysuria, frequency Musculoskeletal: as per HPI Neurological: denies: weakness, numbness, paresthesias ED Past Medical Hx - Past Medical History Previous Medical History?: No Hx Hypertension: No Hx Diabetes: No Hx Deep Vein Thrombosis: No Hx Renal Disease: No Hx Sickle Cell Disease: No Hx Seizures: No Hx Asthma: No Hx HIV: No Additional medical history: Toothache, Vaginal delivery x 3. chronic yeast infections - Surgical History Past Surgical History?: Yes Additional Surgical History: tubal ligation - Social History Smoking Status: Never Smoker Substance Use Type: None - Medications Home Medications: Home Medications Medication Instructions Recorded Confirmed Last Taken Type Tablet 1 tab PO DAILY 02/19/17 02/19/17 1 Day Ago History ~02/18/17 HYDROcodone/APAP 5-325 [Catarina 1 each PO Q6HR PRN #10 tablet 04/28/17 Unknown Rx 5-325 mg TAB] Amoxicillin/K Clav Tab [Augmentin 1 tab PO Q12HR #20 tab 04/30/17 Unknown Rx 875 mg] Ibuprofen [Motrin 600 MG tab] 600 mg PO Q8H PRN #30 tablet 04/30/17 Unknown Rx Fluconazole [Diflucan TAB] 150 mg PO ONCE #1 tablet 02/02/18 Unknown Rx metroNIDAZOLE [Flagyl] 500 mg PO BID #20 tab 02/02/18 Unknown Rx Cyclobenzaprine [Flexeril 10mg] 10 mg PO Q12H PRN #14 tablet 05/05/19 Unknown Rx Ibuprofen [Motrin] 800 mg PO Q8HR PRN #12 tablet 05/05/19 Unknown Rx Prednisone [predniSONE 10 mg 10 mg PO .TAPER #1 tab.ds.pk 05/05/19 Unknown Rx (6-Day Pack, 21 Tabs)] Naproxen [Naprosyn] 500 mg PO BID #20 tablet 06/21/19 Unknown Rx methOCARBAMOL [Robaxin TAB] 500 mg PO Q8HR PRN #20 tablet 06/21/19 Unknown Rx ED Physical Exam - General Limitations: No Limitations General appearance: alert, in no apparent distress - Head Head exam: Present: atraumatic, normocephalic - Eye Eye exam: Present: normal appearance - ENT ENT exam: Present: mucous membranes moist - Neck Neck exam: Present: normal inspection, tenderness (right ) - Respiratory Respiratory exam: Present: normal lung sounds bilaterally. Absent: respiratory distress - Cardiovascular Cardiovascular Exam: Present: regular rate, normal rhythm - GI/Abdominal GI/Abdominal exam: Present: soft. Absent: distended, tenderness - External exam: Present: normal external exam Speculum exam: Present: vaginal discharge, cervical discharge Bi-manual exam: Present: normal bi-manual exam. Absent: cervical motion tendernes - Extremities Exam Extremities exam: Present: normal inspection - Neurological Exam Neurological exam: Present: alert, oriented X3, CN II-XII intact. Absent: motor sensory deficit - Psychiatric Psychiatric exam: Present: normal affect, normal mood - Skin Skin exam: Present: warm, dry, intact, normal color ED Course Vital Signs 06/21/19 10:36 Temperature 98.7 F Pulse Rate 60 Respiratory 16 Rate Blood Pressure 116/64 [Left] O2 Sat by Pulse 99 Oximetry ED Medical Decision Making - Differential Diagnosis uti, cervicitis, PID Critical care attestation.: If time is entered above; I have spent that time in minutes in the direct care of this critically ill patient, excluding procedure time. ED Disposition Clinical Impression: Cervical radiculopathy, Cervicitis Disposition: DC- TO HOME OR SELFCARE Is pt being admited?: No Condition: Stable Instructions: Cervicitis (ED), Cervical Radiculopathy (ED) Prescriptions: Naproxen [Naprosyn] 500 mg PO BID #20 tablet methOCARBAMOL [Robaxin TAB] 500 mg PO Q8HR PRN #20 tablet PRN Reason: Muscle Spasm Referrals: PRIMARY CARE, [Primary Care Provider] - 3-5 Days [facility] MD [Staff Physician] - 3-5 Days Forms: STI Treatment and Prevention
[2019-06-21] MEDS ORDERED: LIDOCAINE-MPF (1%) 10 MG/1 ML VIAL 5 ML INFILTRATI ONE (13:34)
[2019-06-21] MEDS ORDERED: AZITHROMYCIN 250 MG TAB PO ONE (13:34)
== END 2019-06-21 14:18 | disposition home or self-care (01) ==
LOC: ED 09:59
DX: M54.12 Radiculopathy, cervical region (principal); N72 Inflammatory disease of cervix uteri; Z98.51 Tubal ligation status; Z98.890 Other specified postprocedural states; Z79.899 Other long term (current) drug therapy
CPT/HCPCS: 81001; 87210; 87591; 96372; 99283; J0696